=== PATIENT | male | born 1955 | race Caucasian/White ===

== ENCOUNTER → 2017-05-21 | Day surgery (SDC) | payer OTHER, MEDICARE ==
[~2017-05-21] VITALS: Ht 170.2 cm; Wt 72.6 kg
[~2017-05-21] MED LIST: ASPIRIN EC81 M1 PO; DILAUDID2 MG PO; LISINOPRIL10 M1 PO; LUNESTA1 MG PO; OXYCODONE HCL10 M2 PO; PROAIR HFA8.5 GM INH; SEROQUEL XR300 M1 PO
--- NOTE | 2017-05-21 16:59 | Operative Report ---
Operative/Inv Procedure Report Surgery Date: 05/21/17 Name of Procedure: Spinal cord stimulator trial Pre-Operative Diagnosis: Chronic lumbar radiculopathy Post-Operative Diagnosis: Chronic lumbar radiculopathy Surgeon/Printing Machine Operator Tape Rules: WALESKA MORENO MD Anesthesia: moderate sedation IV Fluids: 500 cc Implants: Spinal cord stimulator leads (2) Operative/Procedure Note Note: After consent the patient was brought to the operating room and placed in the prone position. The thoracic and lumbar spine were prepped and draped in the usual fashion. The T12-L1 interlaminar space was identified with fluoroscopy. The skin was infiltrated with 1% lidocaine to the right and left of midline 1.5 spinal segment below. An epidural needle was inserted and directed to the T12- L1 interlaminar space guided by fluoroscopy. The epidural space was entered uneventfully with loss of resistance. The first epidural lead was threaded in the posterior midline epidural space to the T8 level. A second epidural needle was placed to the left of midline and guided to the T12-L1 interlaminar space with fluoroscopy. The epidural space was entered uneventfully with loss of resistance. The second epidural lead was threaded in the posterior midline epidural space to the T8 level alongside the first. AP and lateral fluoroscopy confirmed posterior midline placement. The needles and stylets were removed and the leads were sutured to the skin with 2-0 silk suture for anchoring. Dressings were applied and the patient was then brought to the recovery area with the stimulator was programmed.
--- NOTE | 2017-05-22 10:15 | RADIOLOGY REPORT ---
EXAMINATION: XR LUMBOSACRAL SPINE/INTRAOPERATIVE FLUOROSCOPY CLINICAL INFORMATION: DCS trial in OR. COMPARISON: None TECHNIQUE/FINDINGS: Fluoroscopic equipment was dedicated to the operating room for the performance of a DCS trial OR. 5 fluoroscopic spot films were acquired and are archived in PACS. 2 electrodes are seen projected over the T7 vertebral body. FLUOROSCOPY TIME: 4.2 minutes. IMPRESSION: Administrative dictation for intraoperative fluoroscopy and image archiving during a DCS trial in OR. Please refer to operative notes for procedural detail.
== END ==
LOC: STS 01:49
DX: M54.16 Radiculopathy, lumbar region (principal); M51.36 Other intervertebral disc degeneration, lumbar region; E78.5 Hyperlipidemia, unspecified; F17.200 Nicotine dependence, unspecified, uncomplicated; Z79.82 Long term (current) use of aspirin
CPT/HCPCS: 36415; 72100; 93005; 93010; C1778; J0690; J2250